=== PATIENT | female | born 1995 | race Caucasian/White ===

== ENCOUNTER 2017-08-21 22:17 | Emergency (ER) | payer OTHER ==
[2017-08-21 22:37] VITALS: TEMP 98.2
--- NOTE | 2017-08-21 23:06 | EDPHY ---
General Narrative: CHIEF COMPLAINT: Head injury, scalp laceration HISTORY OF PRESENT ILLNESS: Patient presents with 2 friends. They report that they are treating this evening. Just prior to arrival the patient was walking when she tripped, striking her head on a curb. There is no loss of consciousness, and the fall was witnessed by the 2 friends who are present. She has had no vomiting. She has had no complaints of pain other than her head and her left toe. She does have a laceration to posterior scalp. Complains of mild headache. No chest pain or injury. No back pain or injury. She has been ambulatory but is intoxicated. She also admits to taking 1 Klonopin while drinking. No other associated complaints or modifying factors. REVIEW OF SYSTEMS: Ten systems reviewed and are negative unless otherwise noted in the HPI PCP: Does not recall SPECIALISTS: Does not recall PAST MEDICAL HISTORY: Attention deficit hyperactivity disorder PAST SURGICAL HISTORY: None SOCIAL HISTORY: Occasional alcohol. 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 There is posterior scalp laceration that is not yet visualized due to dried blood. No palpable depression. No Colon sign. No raccoon eyes. Eyes: Pupils equal and round, no conjunctival pallor or injection. EOMs intact. ENT, Mouth: Mucous membranes moist Neck: Normal inspection, supple, non-tender. Painless range of motion all planes no crepitus, step-off or deformity. Respiratory: Lungs are clear to auscultation. No wheezing rhonchi or crackles Cardiovascular: Regular rate and rhythm. No murmur. Pulses intact distally Gastrointestinal: Abdomen is soft and nontender Back: non-tender, no bony abnormalities Neurological: A&O, nonfocal, intoxicated gait. Strength is symmetric in all 4 limbs. Skin: Warm and dry, no rash. Posterior scalp laceration Extremities: Nontender, no pedal edema. Symmetric range of motion all 4 limbs. Psychiatric: Mood and affect normal DIFFERENTIAL DIAGNOSES: Including but not limited to scalp laceration, closed head injury, intracranial hemorrhage, fracture, sprain, strain, total brain, toe fracture MDM: 10:55 p.m. Acute closed head injury with posterior scalp laceration. Laceration is not yet visualized due to dried blood. I will re-evaluate after the wound is clean. Complains of mild headache. No neck pain. No chest or back pain. Mild left toe pain as well. X-ray has been ordered of the toe. Due to the intoxication and inability to rule out by [place] CT head rules or nexus criteria, I have ordered CT scan of the head and cervical spine. She is not vomiting or in any acute distress. 11:05 p.m. Patient evaluated. The scalp laceration has been clean. There is a 2.5 cm curvilinear laceration on the posterior scalp, left of midline. This is superficial and does not compromise the entire epidermis. There is no exposure subcutaneous tissue or galea. Patient is reluctant to allow me to anesthetize at this time. I will of her friends discussed with her further. She is in no acute distress. 11:30 p.m. Patient re-evaluated. She is now agreeable to allowing me to anesthetize her scalp. I have done so without difficulty. Urine test is negative. She will proceed with CT scan and that I will staple repaired the scalp laceration. 12:12 a.m. Patient re-evaluated. The patient had CT scans performed then she reportedly became agitated. I did not witness this. Security was called is now back in the room and calming down again. I have re-evaluated at time. I have re- evaluated the scalp wound. I do not feel that it warrants staple pair as it is superficial and unable to distract the wound borders. Bacitracin is been applied. CT scan results are pending 12:25 a.m. Contacted by radiologist Dr. Valdivia. While there is some motion artifact, he informs me that there does not appear to be any acute findings on CT scan over the cervical spine. Patient is currently getting the x-ray of her toe at this time. 12:40 a.m. X-ray of the toe as read by me reveals no fracture. At this point she is ambulatory without assistance. While intoxicated, she is conversing appropriately. CT scans of the head and cervical spine are negative. Scalp laceration has been irrigated and dressed with bacitracin. No need for closure of the wound with nelia or suture. We discussed wound care. We discussed ED precautions. I discussed this both with the patient and with her friends at bedside with her permission. The friends at bedside have not been drinking. They will be driving her home. She is discharged in stable condition. - Diagnostics Imaging Results: Imaging Impressions Cervical Spine CT 08/21/17 22:54 Impression: Mildly limited secondary to motion artifact. No definite acute intracranial abnormality. CT cervical spine without contrast. History: Fall. Pain. Technique: 1.5 mm helical images were obtained the cervical spine without contrast. Multiplanar reformation was performed. Radiation dose reduction technique was utilized. Significant limitation with motion artifact. Multiple repeats. Findings: No evidence for fracture or subluxation. Disk heights are maintained. No evidence for prevertebral soft tissue swelling. No significant neural foraminal or spinal canal encroachment. Impression: No evidence for cervical spine fracture. Significant limitation with motion artifact. Results called and discussed with Jose M Rodriguez at 08/22/2017 0:26. Head CT 08/21/17 22:54 Impression: Mildly limited secondary to motion artifact. No definite acute intracranial abnormality. CT cervical spine without contrast. History: Fall. Pain. Technique: 1.5 mm helical images were obtained the cervical spine without contrast. Multiplanar reformation was performed. Radiation dose reduction technique was utilized. Significant limitation with motion artifact. Multiple repeats. Findings: No evidence for fracture or subluxation. Disk heights are maintained. No evidence for prevertebral soft tissue swelling. No significant neural foraminal or spinal canal encroachment. Impression: No evidence for cervical spine fracture. Significant limitation with motion artifact. Results called and discussed with Jose M Rodriguez at 08/22/2017 0:26. - History Smoking Status: Current every day smoker - Objective Vital Signs: Initial Vital Signs Temperature (C) 98.2 F 08/21/17 22:33 Heart Rate 100 08/21/17 22:33 Respiratory Rate 18 08/21/17 22:33 Blood Pressure 123/93 H 08/21/17 22:33 O2 Sat (%) 96 08/21/17 22:33 O2 Delivery Mode Room Air Allergies/Adverse Reactions: No Known Allergies Allergy (Unverified 08/21/17 22:29) Home Medications: Medication Instructions Recorded Adderall 5 mg Tablet 08/21/17 Vyvanse 08/21/17 Laboratory Results: 08/21/17 22:50 Urine Test NEGATIVE Departure - Departure Disposition: Home, Routine, Self-Care Clinical Impression: Occipital scalp laceration Qualifiers: Encounter type: initial encounter Qualified Code(s): S01.01XA - Laceration without foreign body of scalp, initial encounter Closed head injury Qualifiers: Encounter type: initial encounter Qualified Code(s): S09.90XA - Unspecified injury of head, initial encounter Acute alcohol intoxication Qualifiers: Complication of substance-induced condition: uncomplicated Qualified Code(s): F10.929 - Alcohol use, unspecified with intoxication, unspecified Sprain of toe, great, left Qualifiers: Encounter type: initial encounter Qualified Code(s): S93.502A - Unspecified sprain of left great toe, initial encounter Condition: Good Instructions: Laceration (ED), Head Injury (ED), Staple Care (ED) Additional Instructions: 1. Daily wound care as discussed with topical application of bacitracin once daily 2. Ibuprofen 600 mg every 8 hours as needed 3. Follow up with primary care physician and Dr. Aguero for head injury care 4. return to ER in 10 days for staple removal 5. Return to ER for worsening headache, vomiting, changes in vision, fever Referrals: Ester Mcclain DO [Doctor of Osteopathy] - As per Instructions Grecia Aguero MD [Medical Doctor] - As per Instructions
[2017-08-22 00:42] VITALS: BP 124/87; PULSE 120; RESP 20; O2SAT 99
== END 2017-08-22 00:43 | disposition home or self-care (01) ==
DX: S01.01XA Laceration without foreign body of scalp, initial encounter (principal); W01.198A Fall on same level from slipping, tripping and stumbling with subsequent striking against other object, initial encounter; Y99.8 Other external cause status; Y93.01 Activity, walking, marching and hiking; F10.929 Alcohol use, unspecified with intoxication, unspecified; F17.200 Nicotine dependence, unspecified, uncomplicated

== ENCOUNTER 2017-08-24 17:05 | Emergency (ER) | payer OTHER ==
[2017-08-24 17:14] VITALS: BP 142/107; PULSE 89; RESP 17; TEMP 98.6; O2SAT 94
--- NOTE | 2017-08-24 18:15 | EDPHY ---
H & P Stated Complaint: l foot inj sat while drunk Time Seen by Provider: 08/24/17 18:08 - Personal History LMP (Females 10-55): Over 28 Days Ago Current Tetanus/Diphtheria Vaccine: Unsure - Medical/Surgical History Hx Asthma: No Hx Chronic Respiratory Disease: No Hx Diabetes: No Hx Cardiac Disease: No Hx Renal Disease: No Hx Cirrhosis: No Hx Alcoholism: Yes Hx HIV/AIDS: No Hx Splenectomy or Spleen Trauma: No Other PMH: ADHD, depression - Social History Smoking Status: Current every day smoker Constitutional: Initial Vital Signs Temperature (C) 37 C 08/24/17 17:10 Heart Rate 89 08/24/17 17:10 Respiratory Rate 17 08/24/17 17:10 Blood Pressure 142/107 H 08/24/17 17:10 O2 Sat (%) 94 08/24/17 17:10 O2 Delivery Mode Room Air Allergies/Adverse Reactions: No Known Allergies Allergy (Verified 08/24/17 17:10) Home Medications: Medication Instructions Recorded NK [No Known Home Meds] 08/24/17 Medical Decision Making ED Course/Re-evaluation: CHIEF COMPLAINT: Left foot pain HISTORY OF PRESENT ILLNESS: This patient was here a couple of days ago was significantly intoxicated according to her. She had images done of her left foot and other images but she does not remember what the results of the images are and she is not sure that she has any referrals are paperwork. She has pain every time she walks on her left foot and that is why she is here. REVIEW OF SYSTEMS: A 10 point review of systems was performed and is negative with the exception of the elements mentioned in the history of present illness. PHYSICAL EXAM: HR, BP, O2 Sat, RR. Temp noted General Appearance: Alert, well hydrated, appropriate, and non-toxic appearing. Head: Atraumatic without scalp tenderness or obvious injury Eyes: Pupils equal, round, reactive to light and accommodation, EOMI, no trauma , no injection. Ears: Clear bilaterally, no perforation, normal landmarks Nose: Atraumatic, no rhinorrhea, clear. Throat: There is no erythema or exudates, no lesions, normal tonsils, mucus membranes moist. Neck: Supple, 2+ carotid upstroke, nontender, no lymphadenopathy. Respiratory: No retractions, no distress, no wheezes, and no accessory muscle use. Lungs are clear to auscultation bilaterally. Cardiovascular: Regular rate and rhythm, no murmurs, rubs, or gallops. Bilateral carotid, radial, dorsalis pedis, and posterior tibial pulses intact. Good capillary refill all extremities. Gastrointestinal: Abdomen is soft, nontender, non-distended, no masses, no rebound, no guarding, no peritoneal signs. Musculoskeletal: Pain and bruising on the dorsal aspect of the left foot, otherwise, Normal active ROM of all extremities, atraumatic. Neurological: Alert, appropriate, and interactive. The patient has normal DTRs and non-focal cranial nerves, motor, sensory, and cerebellar exam. Skin: No rashes, good turgor, no nodules on palpation. Past medical history: Noncontributory Past surgical history: Noncontributory Family history: Noncontributory Social history: Single, employed, uses alcohol, denies drug abuse DIAGNOSTICS/PROCEDURES/CRITICAL CARE TIME: I reviewed the foot films from the last visit. She has 2 fractures of the 3rd and 4th metatarsal. DIFFERENTIAL DIAGNOSIS: Includes but is not limited to: Foot fracture, metatarsal fracture, tarsal fracture, contusion, skin injury, abrasion. MEDICAL DECISION MAKING: This patient has 2 nondisplaced metatarsal fractures from a couple of days ago. The patient endorses the fact that she was significantly intoxicated and ended up leaving the emergency department without appropriate splinting or follow-up information. I will put this patient in a postop shoe, provide pain medicine, and provide orthopedic follow-up. Departure - Departure Disposition: Home, Routine, Self-Care Clinical Impression: Foot fracture, left Qualifiers: Encounter type: subsequent encounter Fracture type: closed Fracture healing: with routine healing Qualified Code(s): S92.902D - Unspecified fracture of left foot, subsequent encounter for fracture with routine healing Condition: Good Instructions: Foot Fracture in Adults (ED) Referrals: NONE *PRIMARY CARE P,. [Primary Care Provider] - As per Instructions Josafat Bennett MD [Medical Doctor] - As per Instructions
== END 2017-08-24 18:31 | disposition home or self-care (01) ==
DX: S92.902D Unspecified fracture of left foot, subsequent encounter for fracture with routine healing (principal); F17.200 Nicotine dependence, unspecified, uncomplicated; X58.XXXD Exposure to other specified factors, subsequent encounter